=== PATIENT | female | born 1990 | race African-American/Black ===

== ENCOUNTER 2018-06-19 15:58 | Emergency (ER) | payer SELFPAY ==
[~2018-06-19] VITALS: Ht 165.1 cm; Wt 125.0 kg
[~2018-06-19 15:58] MED LIST: NKDA
[2018-06-19] MEDS ORDERED: CEPHALEXIN500 M1 PO (18:11)
[2018-06-19] MEDS ORDERED: NORCO 325 MG-51 TAB PO (18:12)
[2018-06-19 18:25] VITALS: BP 137/98; PULSE 97
== END 2018-06-19 18:25 | disposition home or self-care (01) ==
LOC: COL.ER 15:58
DX: L03.031 Cellulitis of right toe (principal)
CPT/HCPCS: A4216; J0690

== ENCOUNTER 2018-07-14 15:46 | Emergency (ER) | payer SELFPAY ==
[~2018-07-14] VITALS: Ht 165.1 cm; Wt 125.0 kg
[~2018-07-14 15:46] MED LIST changes: +CEPHALEXIN500 M1 PO; +NORCO 325 MG-51 TAB PO
[2018-07-14] MEDS ORDERED: KLONOPIN 0.5MG0.5 MG PO (16:19)
[2018-07-14] MEDS ORDERED: ZOLOFT 25MG25 MG PO (16:19)
[2018-07-14 16:22] VITALS: BP 133/76; PULSE 98; TEMP 98.5
== END 2018-07-14 16:27 | disposition home or self-care (01) ==
LOC: COL.ER 15:46
DX: F41.9 Anxiety disorder, unspecified (principal); F32.9 Major depressive disorder, single episode, unspecified; F17.210 Nicotine dependence, cigarettes, uncomplicated

== ENCOUNTER 2018-07-20 10:39 | Emergency (ER) | payer SELFPAY ==
[~2018-07-20] VITALS: Ht 165.1 cm; Wt 122.7 kg
[~2018-07-20 10:39] MED LIST changes: +KLONOPIN 0.5MG0.5 MG PO; +ZOLOFT 25MG25 MG PO
[2018-07-20 10:41] VITALS: BP 139/75; PULSE 93; TEMP 98.8
[2018-07-20] MEDS ORDERED: KLONOPIN 0.5MG0.5 MG PO (11:19)
== END 2018-07-20 11:37 | disposition home or self-care (01) ==
LOC: COL.ER 10:39
DX: F41.9 Anxiety disorder, unspecified (principal); F17.210 Nicotine dependence, cigarettes, uncomplicated; F32.9 Major depressive disorder, single episode, unspecified

== ENCOUNTER → 2018-07-26 | Outpatient (CLI) | payer SELFPAY | LOC: COL.RAD 12:30 | DX: S92.911B Unspecified fracture of right toe(s), initial encounter for open fracture (principal); R60.0 Localized edema ==

== ENCOUNTER 2018-08-17 12:53 | Day surgery (SDC) | payer MEDICAID ==
[~2018-08-17] VITALS: Ht 165.1 cm; Wt 118.2 kg
[2018-08-17] MEDS ORDERED: MIRENA52 MG IY (13:16)
[2018-08-17 14:20] VITALS: BP 125/81; PULSE 81; TEMP 97.5
--- NOTE | 2018-08-17 14:20 | NUR ---
Pt arrived back to [facility] Room 2 from procedure. Pt A/Ox4. Denies any pain or nausea. Assist x1 to chair from stretcher. Steady gait. Pt's mother and dtrs in room. Pt request water and muffin. VSS. Report received from BARBARA Tellez.
[2018-08-17 14:35] VITALS: BP 110/84; PULSE 68; TEMP 97.5
--- NOTE | 2018-08-17 14:38 | NUR ---
Pt tolerating sips of water and muffin. Denies any pain or nausea.
[2018-08-17 14:50] VITALS: BP 101/77; PULSE 68; TEMP 97.5
[2018-08-17 15:05] VITALS: BP 113/64; PULSE 72; TEMP 97.6
[2018-08-17 15:22] VITALS: BP 123/77; PULSE 77; TEMP 98.6
[2018-08-17 15:35] VITALS: BP 122/75; PULSE 78; TEMP 97.8
--- NOTE | 2018-08-17 15:50 | NUR ---
Discussed discharge instructions, procedure information and med list to the pt. Answered all questions to pt's satisfaction. Signed paperwork in chart.
--- NOTE | 2018-08-17 15:57 | NUR ---
Pt discharged from [facility]. Pt left unit via WC to private vehicle driven by mother.
== END 2018-08-17 15:57 | disposition home or self-care (01) ==
LOC: SDCO 12:53
DX: K92.1 Melena (principal); K64.1 Second degree hemorrhoids; Z80.0 Family history of malignant neoplasm of digestive organs; Z88.0 Allergy status to penicillin; Z88.8 Allergy status to other drugs, medicaments and biological substances; F17.210 Nicotine dependence, cigarettes, uncomplicated
CPT/HCPCS: J2704; J7030